=== PATIENT | male | born 1995 | race Caucasian/White ===

== ENCOUNTER 2017-03-28 21:53 | Emergency (ER) | payer BC, OTHER ==
[2017-03-28 21:59] VITALS: TEMP 97.1
[2017-03-28] MEDS ORDERED: HYDROcodone/APAP 5-325MG 1 EACH TAB PO STA (22:08)
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
--- NOTE | 2017-03-28 22:42 | XR ---
EXAM: XR Left Ribs and AP Chest, 3 or More Views CLINICAL HISTORY: Reason: Pain TECHNIQUE: Frontal and oblique views of the left ribs and frontal view of the chest. COMPARISON: No relevant prior studies available. FINDINGS: Lungs: Unremarkable. No consolidation. Pleural space: Unremarkable. No pneumothorax. Heart: Unremarkable. No cardiomegaly. Mediastinum: Unremarkable. Bones/joints: Unremarkable. No acute fracture. IMPRESSION: Normal left rib x-rays.
[2017-03-28 22:55] VITALS: BP 129/70; PULSE 79; RESP 16
== END 2017-03-28 23:00 | disposition home or self-care (01) ==
LOC: EC 21:53
DX: S20.212A Contusion of left front wall of thorax, initial encounter (principal); S60.511A Abrasion of right hand, initial encounter; S60.512A Abrasion of left hand, initial encounter; S80.211A Abrasion, right knee, initial encounter; S80.212A Abrasion, left knee, initial encounter; Z91.018 Allergy to other foods; Y04.0XXA Assault by unarmed brawl or fight, initial encounter; Y92.009 Unspecified place in unspecified non-institutional (private) residence as the place of occurrence of the external cause
CPT/HCPCS: 99284

== ENCOUNTER 2018-05-17 21:33 | Emergency (ER) | payer BC ==
[2018-05-17 21:44] VITALS: BP 157/75; PULSE 88; RESP 18; TEMP 98.8
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
== END 2018-05-17 22:36 | disposition home or self-care (01) ==
LOC: EC 21:33
DX: Z02.89 Encounter for other administrative examinations (principal); F17.200 Nicotine dependence, unspecified, uncomplicated; Z91.018 Allergy to other foods
CPT/HCPCS: 99284

== ENCOUNTER 2019-09-28 15:48 | Emergency (ER) | payer BC, OTHER ==
[2019-09-28] MEDS ORDERED: ONDANSETRON 4 MG TAB PO STA (16:45)
[2019-09-28] MEDS ORDERED: ACETAMINOPHEN TAB 500 MG TAB PO STA (16:45)
[2019-09-28] MEDS ORDERED: IBUPROFEN 800 MG TAB PO STA (16:45)
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
--- NOTE | 2019-09-28 17:20 | CT ---
EXAMINATION TYPE: CT brain wo con DATE OF EXAM: 09/28/2019 COMPARISON: 09/12/2004 HISTORY: 1369 CT DLP: fell face first 4 days ago. Hit his nose on ice. pain between his nose and upper lip mGycm. Automated Exposure Control for Dose Reduction was Utilized. TECHNIQUE: CT scan of the head is performed without contrast. FINDINGS: Ventricles have normal size. There is no mass effect nor midline shift. There is no sign of intracranial hemorrhage. There is some mucosal thickening in the maxillary sinuses. Calvarium is int act. IMPRESSION: Negative head CT scan. No change. Minimal maxillary sinusitis noted.
--- NOTE | 2019-09-28 17:23 | CT ---
EXAMINATION TYPE: CT facial bones wo con DATE OF EXAM: 09/28/2019 COMPARISON: None HISTORY: fell face first 4 days ago. Hit his nose on ice. pain between his nose and upper lip CT DLP: 1369 mGycm Automated exposure control for dose reduction was used. TECHNIQUE: CT scan of the sinuses is performed without contrast, axial images are obtained, coronal r eformatted images are also reviewed. FINDINGS: Multiple axial sections were obtained from the bottom of the mandible to the top of the fro ntal sinuses without contrast. Nasal bone is intact. Orbital margins are intact. There is no evidence of orbital mass. There is no e vidence of blowout fracture. There is mild mucosal thickening in the maxillary sinuses. There is muco andrea thickening at the ostiomeatal complex bilaterally. Maxilla is intact. Zygomatic arches appear nor mal. Mandibular ring is intact. Temporomandibular joints appear normal. I see no bony destructive pro cess. IMPRESSION: Minimal maxillary sinusitis. No fracture seen.
[2019-09-28] MEDS ORDERED: AMOXICILLIN 250 MG/5 ML 80 ML BOTTLE PO ONE (17:49)
[2019-09-28] MEDS ORDERED: AMOXICILLIN 500 MG CAP PO STA (17:49)
[2019-09-28] MEDS ORDERED: ONDANSETRON 4 MG ODT STARTER PACK 2 TAB BTL PO STA (17:51)
[2019-09-28 18:05] VITALS: BP 148/68; PULSE 89; RESP 18; TEMP 98.2
== END 2019-09-28 18:04 | disposition home or self-care (01) ==
LOC: EC 15:48
DX: S09.90XA Unspecified injury of head, initial encounter (principal); J32.9 Chronic sinusitis, unspecified; F17.200 Nicotine dependence, unspecified, uncomplicated; Z91.018 Allergy to other foods; W00.0XXA Fall on same level due to ice and snow, initial encounter; Y92.009 Unspecified place in unspecified non-institutional (private) residence as the place of occurrence of the external cause
CPT/HCPCS: 70486; 70450; 99284; S0119

== ENCOUNTER 2020-12-20 17:41 | Emergency (ER) | payer OTHER ==
[2020-12-20 17:56] VITALS: BP 138/78; PULSE 78; RESP 18; TEMP 98.8
[2020-12-20] MEDS ORDERED: TOPICAL SKIN ADHESIVE 1 EACH AMP TOPICAL ONE (18:17)
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
== END 2020-12-20 18:50 | disposition home or self-care (01) ==
LOC: EC 17:41
DX: S61.201A Unspecified open wound of left index finger without damage to nail, initial encounter (principal); F17.200 Nicotine dependence, unspecified, uncomplicated; Z91.018 Allergy to other foods; W26.8XXA Contact with other sharp object(s), not elsewhere classified, initial encounter; Y92.69 Other specified industrial and construction area as the place of occurrence of the external cause; Y99.0 Civilian activity done for income or pay
CPT/HCPCS: 99282

== ENCOUNTER → 2021-02-21 | Outpatient (CLI) | payer BC, OTHER ==
--- NOTE | 2021-02-21 15:54 | XR ---
EXAMINATION TYPE: XR wrist complete BILATERAL DATE OF EXAM: 02/21/2021 CLINICAL HISTORY: Bilateral wrist pain. TECHNIQUE: Frontal, lateral and oblique images of the bilateral wrists are obtained. 4 view scaphoi d view is performed bilaterally. COMPARISON: None FINDINGS: There is no acute fracture/dislocation evident in either wrist. The joint spaces in the b ilateral wrists appear within normal limits. The overlying soft tissue appears unremarkable in bilate ral wrists. IMPRESSION: As above.
== END | disposition home or self-care (01) ==
LOC: RADXRMAIN 15:05
PROVIDERS: ATTEND Nurse Practitioner
DX: M25.531 Pain in right wrist (principal); M25.532 Pain in left wrist

== ENCOUNTER 2021-09-01 08:31 | Emergency (ER) | payer OTHER ==
[2021-09-01] MEDS ORDERED: ACETAMINOPHEN TAB 500 MG TAB PO STA (09:07)
[2021-09-01] MEDS ORDERED: SODIUM CHLORIDE 0.9% 1,000 ML IV STA (09:07)
[2021-09-01] MEDS ORDERED: ONDANSETRON 4 MG/2 ML VIAL IVP STA (09:07)
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
[2021-09-01 09:42] LABS: Basophils # (A) 0.1 k/uL (0-0.2); Basophils % (A) 1 %; Eosinophils # (A) 0.1 k/uL (0-0.7); Eosinophils % (A) 1 %; HCT 48.2 % (39.0-53.0); HGB 16.5 gm/dL (13.0-17.5); Lymphocytes # (A) 1.4 k/uL (1.0-4.8); Lymphocytes % (A) 18 %; MCH 29.9 pg (25.0-35.0); MCHC 34.2 g/dL (31.0-37.0); MCV 87.6 fL (80.0-100.0); Mean Platelet Volume 7.3; Monocytes # (A) 0.6 k/uL (0-1.0); Monocytes % (A) 7 %; Neutrophils # (A) 5.3 k/uL (1.3-7.7); Neutrophils % (A) 71 %; Platelet Count 210 k/uL (150-450); RBC 5.51 m/uL (4.30-5.90); RDW 12.5 % (11.5-15.5); WBC 7.5 k/uL (3.8-10.6)
[2021-09-01 09:53] LABS: ALT 31 U/L (4-49); AST 30 U/L (17-59); African American GFR (CKD) >90 (>60 ml/min/1.73 sqM); Albumin 4.2 g/dL (3.5-5.0); Alkaline Phosphatase 67 U/L (38-126); Anion Gap 9 mmol/L; Blood Urea Nitrogen 10 mg/dL (9-20); Calcium 9.6 mg/dL (8.4-10.2); Carbon Dioxide 23 mmol/L (22-30); Chloride 104 mmol/L (98-107); Glucose 114 mg/dL (74-99); Non-African American GFR(CKD) >90 (>60 ml/min/1.73 sqM); Potassium 4.2 mmol/L (3.5-5.1); Sodium 136 mmol/L (137-145); Total Bilirubin 0.7 mg/dL (0.2-1.3); Total Protein 6.6 g/dL (6.3-8.2)
--- NOTE | 2021-09-01 09:59 | XR ---
EXAMINATION TYPE: XR chest 2V DATE OF EXAM: 09/01/2021 COMPARISON: 03/28/2017 HISTORY: 26-year-old male cough and fever TECHNIQUE: PA and lateral views FINDINGS: The cardiomediastinal silhouette, aorta, and pulmonary vasculature are within normal limits. Low lung volumes with crowded vascular markings. Some strandy atelectasis in the lower lungs. No consolidatio n or pleural effusion. IMPRESSION: No focal infiltrate seen to suggest pneumonia.
[2021-09-01 10:28] VITALS: RESP 18; TEMP 99.2
[2021-09-01] MEDS ORDERED: CASIRIVIMAB (REGN10933) (EUA) 600 MG, IMDEVIMAB (REGN10987) (EUA) 600 MG in SODIUM CHLO... IVPB ONE (11:15)
[2021-09-01] MEDS ORDERED: SODIUM CHLORIDE 0.9% 50 ML IVPB ONE (11:45)
[2021-09-01 12:47] VITALS: BP 113/73; PULSE 94
== END 2021-09-01 12:47 | disposition home or self-care (01) ==
LOC: EC 08:31
DX: U07.1 COVID-19 (principal); F41.9 Anxiety disorder, unspecified; F17.200 Nicotine dependence, unspecified, uncomplicated; Z90.89 Acquired absence of other organs
CPT/HCPCS: 99284 ×2; 96365; 96375 ×2; 96361 ×2; 36415; 80053; 85025; 87635; 71046; M0243; J2405; Q0243